=== PATIENT | male | born 1950 | race Caucasian/White ===

== ENCOUNTER 2019-04-06 09:11 | Observation (INO) | payer MEDICARE, BC ==
[~2019-04-06] VITALS: Ht 177.8 cm; Wt 97.5 kg
[2019-04-06] VITALS (110 sets, daily range): BP systolic 94–137; BP diastolic 60–84; PULSE 58–77; TEMP 97–98; O2SAT 92–96
[2019-04-06 10:27] LABS: BASO % 0.3 % (0.0-2.0); EOS % 0.5 % (0-4.0); GRAN # 4.4 (1.4-6.5); GRAN % 74.7 % (42.2-75.2); HEMATOCRIT 45.3 % (42.0-52.0); HEMOGLOBIN 15.7 g/dl (13.5-18.0); LYMPH # 0.9 (1.2-3.4); LYMPH % 15.9 % (20.0-51.0); MEAN CELL VOLUME 89 fl (80.0-100.0); MEAN CORPUSCULAR HEMOGLOBIN 31 pg (27.0-31.0); MEAN CORPUSCULAR HGB CONC 35 g/dl (33.0-37.0); MEAN PLATELET VOLUME 8.9 fl (7.4-10.4); MONO # 0.5 (0.1-0.6); MONO % 8.4 % (1.7-9.3); PLATELET COUNT 185 K/mm3 (130-400); RED BLOOD COUNT 5.09 M/mm3 (4.20-5.60); REDCELL DISTRIBUTION WIDTH-CV 12.5 % (11.5-14.5)
[2019-04-06 10:31] LABS: PROTHROMBIN TIME 11.1 SECONDS (9.7-12.8)
[2019-04-06 10:34] LABS: CALCIUM 9.5 mg/dL (8.4-10.2); CREATININE, serum 0.94 (0.66-1.25)
[2019-04-06] MEDS ORDERED: HYGROTON 2525 MG/TAB (10:57)
[2019-04-06] MEDS ORDERED: HYGROTON 2525 MG/TAB PO (10:59)
[2019-04-06] MEDS ORDERED: CRESTOR20 MG PO (11:00)
[2019-04-06] MEDS ORDERED: BENICAR40 MG PO (11:08)
[2019-04-06] MEDS ORDERED: ASPIRIN 81M81 MG/TA2 PO (11:08)
[2019-04-06] MEDS ORDERED: ZYRTEC 10MG10 MG PO (11:09)
[2019-04-06] MEDS ORDERED: MASON NATURAL2000 IU PO (11:10)
--- NOTE | 2019-04-06 17:37 | NUR ---
ALL MEDICATIONS GIVEN VORB WITH MD. SEE MERGE FOR ALL MEDICATION ADMIN TIMES. SEE MERGE FOR ALL RASS ASSESSMENTS DURING AND POST PROCEDURE.
--- NOTE | 2019-04-06 18:41 | NUR ---
Patient is off floor having cardiac catheterization procedure.
--- NOTE | 2019-04-06 19:30 | NUR ---
Patient arrived from the phlebotomist medical lab assistant accompanied by KLAUS Fitch. Patient alert oriented, patient assessment completed and charted at this time, please see documentation for details. Assuming care of patient at this time.
--- NOTE | 2019-04-06 19:40 | NUR ---
Patient transported to ICU 3 at this time, with [facility] for monitoring. Patient alert and oriented, denies any pain at this time. KLAUS Jesus at bedside. Hooked backup to monitoring equipment, VS stable. Visualized right femoral site with RN. Dressing clean, dry, and intact. No oozing or hematoma noted at this time. Site soft and nontender. Angiomax continues to infuse at 35ml/hr, visualized with RN. Pedal pulses +2 bilaterally. Discussed importance of bedrest and importance of keeping head on pillow. Verbalizes understanding. Bed in locked and lowest position, call light within reach.
[2019-04-07] VITALS (419 sets, daily range): BP systolic 100–120; BP diastolic 64–77; PULSE 52–69; TEMP 97.3–98.1; O2SAT 84–98
[2019-04-07 05:24] LABS: CALCIUM 8.6 mg/dL (8.4-10.2); CREATININE, serum 0.81 (0.66-1.25); POTASSIUM 3.7 mmol/L (3.4-5.0)
[2019-04-07 05:27] LABS: BASO % 0.4 % (0.0-2.0); EOS % 0.7 % (0-4.0); GRAN # 4.2 (1.4-6.5); GRAN % 77.5 % (42.2-75.2); HEMATOCRIT 40.9 % (42.0-52.0); HEMOGLOBIN 14.3 g/dl (13.5-18.0); LYMPH # 0.7 (1.2-3.4); LYMPH % 13.3 % (20.0-51.0); MEAN CELL VOLUME 88 fl (80.0-100.0); MEAN CORPUSCULAR HEMOGLOBIN 31 pg (27.0-31.0); MEAN CORPUSCULAR HGB CONC 35 g/dl (33.0-37.0); MONO # 0.4 (0.1-0.6); MONO % 7.9 % (1.7-9.3); PLATELET COUNT 163 K/mm3 (130-400); RED BLOOD COUNT 4.66 M/mm3 (4.20-5.60); REDCELL DISTRIBUTION WIDTH-CV 12.6 % (11.5-14.5)
--- NOTE | 2019-04-07 07:52 | NUR ---
Shift assessment complete at this time. Plan of care reviewed at bedside with patient. Additional time taken to address any other needs or concerns. Vitals stable at this time. Pt denies pain or any other discomfort. R femoral cath site clean, dry, et intact with no drainage or hematoma noted. Bed in low position, call light within reach, will continue to monitor.
--- NOTE | 2019-04-07 09:59 | NUR ---
Visited, listened and proveded spiritual care.
--- NOTE | 2019-04-07 11:46 | NUR ---
Pt resting comfortably in bed. Denies pain or any other discomforts at this time. Vitals stable. R femoral cath site clean, dry, et intact with no drainage or hematoma present. Bed in low et locked position, call light within reach. Will continue to monitor.
[2019-04-07] MEDS ORDERED: PLAVIX 75MG TAB75 MG PO (12:28)
== END 2019-04-07 13:03 | disposition home or self-care (01) ==
LOC: MEDICAL 09:11 → ICU 19:30
PROVIDERS: ADMIT Internal Medicine Interventional Cardiology
DX: I25.110 Atherosclerotic heart disease of native coronary artery with unstable angina pectoris (principal); Z79.899 Other long term (current) drug therapy; Z79.82 Long term (current) use of aspirin; Z82.49 Family history of ischemic heart disease and other diseases of the circulatory system; Z88.6 Allergy status to analgesic agent; Z96.653 Presence of artificial knee joint, bilateral
CPT/HCPCS: C1725; C1760; C1769; C1874; C1887; C1894; C9600; G0008; G0378; J0583; J1644; J2250; J2405; J3010; J7030; Q9967